=== PATIENT | male | born 1965 | race Caucasian/White ===

== ENCOUNTER → 2020-08-26 | Outpatient (CLI) | payer OTHER ==
--- NOTE | 2020-08-26 11:58 | Diagnostic Imaging Report ---
Cervical spine INDICATION: Neck pain AP, lateral and odontoid views were obtained. There are no prior studies available for comparison. The lateral view shows the vertebral body heights and alignment to be within normal limits and the intervertebral spaces to be fairly well-maintained. There is no fracture or acute bony abnormality noted. There is no sign of retropharyngeal edema. The lung apices are clear. IMPRESSION: There is no evidence for an acute bony abnormality. Dictated by: Dictated on workstation # [id number]
--- NOTE | 2020-08-26 12:10 | Diagnostic Imaging Report ---
EXAM: Left foot at 11:15 INDICATION: Foot pain 3 views were obtained. COMPARISON: There are no prior studies available for comparison. FINDINGS: There is no fracture, dislocation or acute bony abnormality evident. The Lisfranc joint seems well maintained. There is a minute calcaneal spur. The soft tissues are unremarkable. IMPRESSION: There is no evidence for an acute bony abnormality. Dictated by: Dictated on workstation # [id number]
--- NOTE | 2020-08-26 16:21 | Diagnostic Imaging Report ---
INDICATION: Back pain. COMPARISON: None available. TECHNIQUE: Three views of the thoracic spine are obtained. FINDINGS: Normal kyphosis of the thoracic spine. No spondylolisthesis. Intervertebral disc space heights are well-preserved. Vertebral bodies are normal in height with the exception of some mild degenerative wedging in the lower thoracic vertebrae, likely at T12 and T11. Mild degenerative disc disease in the lower thoracic spine. No ankylosis. IMPRESSION: 1. No compression deformity within the thoracic vertebrae. 2. Mild degenerative disc disease in the lower thoracic spine. Dictated by: Dictated on workstation # [id number]
== END ==
LOC: RAD 10:38
PROVIDERS: ATTEND Nurse Practitioner Family
DX: M47.814 Spondylosis without myelopathy or radiculopathy, thoracic region (principal); M79.672 Pain in left foot
CPT/HCPCS: 72040; 72072; 73630